=== PATIENT | female | born 1975 | race Caucasian/White ===

== ENCOUNTER 2017-10-14 14:02 | Emergency (ER) | payer OTHER ==
[~2017-10-14] VITALS: Ht 157.5 cm; Wt 77.1 kg
[~2017-10-14 14:02] MED LIST: ACET500; AMOX500 PO; ATEN50 PO; ATOR10 PO; Amitriptyline H25 MG PO; BENZ100A PO; BETA BLOCKER; CLIN300 PO; Cyclobenzaprine5 MG PO; ESCI20 PO; FLEXERIL; GABAPENTIN; HYDACE5 PO; HYDHCL25 PO; HYDPAM25 PO; IBUP200; LISI20 PO; LISI5 PO; METO25ER PO; NAPR220; NAPR500 PO; Norco 5-325 Ta1 EACH PO; PENVK250 PO; Prednisone20 MG PO; RXHYDACE PO; RXPENVK250 PO; SERT50 PO; TRAM50 PO; TRAMADOL; Ventolin/Prove6.7 GM INH; Vistaril25 MG PO; Vistaril50 MG PO; Zestril40 MG; Zestril40 MG PO
[2017-10-14] MEDS ORDERED: HYDPAM25 PO (14:19)
[2017-10-14] MEDS ORDERED: CYCL10 PO (16:22)
[2018-04-15] MEDS ORDERED: Vistaril25 MG PO (14:28)
[2018-04-15] MEDS ORDERED: Prinivil10 MG PO (14:55)
== END 2017-10-14 16:38 | disposition home or self-care (01) ==
LOC: ER 14:02
DX: S10.91XA Abrasion of unspecified part of neck, initial encounter (principal); Z88.5 Allergy status to narcotic agent; Z79.899 Other long term (current) drug therapy; I10 Essential (primary) hypertension; J45.909 Unspecified asthma, uncomplicated; E78.5 Hyperlipidemia, unspecified; F17.200 Nicotine dependence, unspecified, uncomplicated; V49.50XA Passenger injured in collision with unspecified motor vehicles in traffic accident, initial encounter
CPT/HCPCS: 72125; 96372; 99284; J1885

== ENCOUNTER 2017-10-23 00:52 | Emergency (ER) | payer OTHER ==
[~2017-10-23] VITALS: Ht 160 cm; Wt 77.1 kg
[~2017-10-23 00:52] MED LIST changes: +CYCL10 PO
[2017-10-23] MEDS ORDERED: METO25 (01:04)
[2017-10-23] MEDS ORDERED: BENZ100A PO (01:43)
[2018-04-15] MEDS ORDERED: Vistaril25 MG PO (14:28)
[2018-04-15] MEDS ORDERED: Prinivil10 MG PO (14:55)
== END 2017-10-23 02:03 | disposition home or self-care (01) ==
LOC: ER 00:52
DX: J06.9 Acute upper respiratory infection, unspecified (principal); I10 Essential (primary) hypertension; I25.2 Old myocardial infarction; F17.200 Nicotine dependence, unspecified, uncomplicated; J45.909 Unspecified asthma, uncomplicated; Z88.5 Allergy status to narcotic agent; Z79.899 Other long term (current) drug therapy
CPT/HCPCS: 96372; 99283; J1885

== ENCOUNTER 2019-03-31 11:04 | Emergency (ER) | payer OTHER ==
[~2019-03-31] VITALS: Ht 157.5 cm; Wt 74.8 kg
[~2019-03-31 11:04] MED LIST changes: +METO25; +Prinivil10 MG PO
[2019-03-31 11:59] LABS: Source, Urine Clean Catch
[2019-03-31 12:02] LABS: Bilirubin, Urine Neg (Neg); Blood, Urine 1+ (Neg); Glucose Qualitative, Urine Neg (Neg); Ketones, Urine 1+ (Neg); Leukocyte Esterase, Urine 3+ (Neg); Nitrite, Urine Neg (Neg); Protein, Urine 1+ (Neg); Urobilinogen, Urine 2+ (Normal)
[2019-03-31 12:16] LABS: Appearance, Urine Hazy (Clear); Color, Urine Yellow (P-Yellow)
[2019-03-31 12:18] LABS: Red Blood Cells, Urine 0-2 /hpf (0-2); Squamous Epithelial Cells Many /hpf (Few)
[2019-03-31 12:19] LABS: Bacteria Mod /hpf
[2019-03-31] MEDS ORDERED: IBUP800 PO (13:00)
[2019-03-31] MEDS ORDERED: HYDR1TAB94 PO (13:09)
== END 2019-03-31 13:05 | disposition home or self-care (01) ==
LOC: ER 11:04
PROVIDERS: Physician Assistant
DX: S92.512A Displaced fracture of proximal phalanx of left lesser toe(s), initial encounter for closed fracture (principal); W22.8XXA Striking against or struck by other objects, initial encounter; Z88.5 Allergy status to narcotic agent; I10 Essential (primary) hypertension; I25.2 Old myocardial infarction; J45.909 Unspecified asthma, uncomplicated; F17.210 Nicotine dependence, cigarettes, uncomplicated
CPT/HCPCS: 73660; 81001; 81025; 87086; 99283-25

== ENCOUNTER 2019-07-08 20:37 | Emergency (ER) | payer OTHER ==
[~2019-07-08] VITALS: Ht 160 cm; Wt 81.7 kg
[~2019-07-08 20:37] MED LIST changes: +HYDR1TAB94 PO; +IBUP800 PO
[2019-07-08] MEDS ORDERED: ZESTORETIC 20-121 EA (20:53)
[2019-07-08] MEDS ORDERED: Atarax10 MG (20:53)
[2019-07-08] MEDS ORDERED: Ferrous Sulfat325 MG (20:53)
[2019-07-08] MEDS ORDERED: Cymbalta20 MG PO (20:54)
[2019-07-08] MEDS ORDERED: VICODIN 5-3001 EACH PO (22:13)
[2019-07-08] MEDS ORDERED: IBUP600 PO (22:13)
== END 2019-07-09 02:18 | disposition home or self-care (01) ==
LOC: ER 20:37
DX: S82.64XA Nondisplaced fracture of lateral malleolus of right fibula, initial encounter for closed fracture (principal); I10 Essential (primary) hypertension; I25.2 Old myocardial infarction; F17.210 Nicotine dependence, cigarettes, uncomplicated; Z88.5 Allergy status to narcotic agent; Z79.899 Other long term (current) drug therapy; V00.121A Fall from non-in-line roller-skates, initial encounter
CPT/HCPCS: 29515; 73610; 96372-59; 99283-25; A9270; A9270-GY; J3010

== ENCOUNTER 2020-09-10 09:22 | Emergency (ER) | payer OTHER ==
[~2020-09-10] VITALS: Ht 157.5 cm; Wt 90.7 kg
[~2020-09-10 09:22] MED LIST changes: +Atarax10 MG; +Cymbalta20 MG PO; +Ferrous Sulfat325 MG; +IBUP600 PO; +VICODIN 5-3001 EACH PO; +ZESTORETIC 20-121 EA
== END 2020-09-10 09:50 | disposition home or self-care (01) ==
LOC: ER 09:22
DX: T78.40XA Allergy, unspecified, initial encounter (principal); I10 Essential (primary) hypertension; I25.2 Old myocardial infarction; F17.210 Nicotine dependence, cigarettes, uncomplicated; Z88.5 Allergy status to narcotic agent; Z79.899 Other long term (current) drug therapy
CPT/HCPCS: 99282; J1100

== ENCOUNTER 2021-05-31 12:30 | Emergency (ER) | payer OTHER | END 2021-05-31 14:45 | disposition home or self-care (01) | LOC: ER 12:30 | DX: U07.1 COVID-19 (principal); F17.210 Nicotine dependence, cigarettes, uncomplicated; I10 Essential (primary) hypertension; J45.909 Unspecified asthma, uncomplicated; Z79.899 Other long term (current) drug therapy; Z88.0 Allergy status to penicillin; Z88.5 Allergy status to narcotic agent | CPT/HCPCS: 96372; 99282-25; J1885 ==

== ENCOUNTER 2021-08-17 11:41 | Emergency (ER) | payer OTHER ==
[~2021-08-17] VITALS: Ht 157.5 cm; Wt 90.7 kg
[2021-08-17] MEDS ORDERED: IBUP400 PO (12:58)
[2021-08-17] MEDS ORDERED: ACET500 PO (12:58)
== END 2021-08-17 13:10 | disposition home or self-care (01) ==
LOC: ER 11:41
DX: S96.912A Strain of unspecified muscle and tendon at ankle and foot level, left foot, initial encounter (principal); M77.8 Other enthesopathies, not elsewhere classified; I10 Essential (primary) hypertension; I25.2 Old myocardial infarction; J45.909 Unspecified asthma, uncomplicated; F17.210 Nicotine dependence, cigarettes, uncomplicated; Z88.5 Allergy status to narcotic agent; Z88.0 Allergy status to penicillin; Z79.899 Other long term (current) drug therapy; W22.8XXA Striking against or struck by other objects, initial encounter
CPT/HCPCS: 73630; 99283-25; A9270

== ENCOUNTER → 2022-12-24 | Outpatient (CLI) | payer OTHER ==
[~2022-12-24] MED LIST changes: +ACET500 PO; +IBUP400 PO
== END | disposition home or self-care (01) ==
LOC: LAB 11:40 → LAB SHORT 11:40
DX: N39.0 Urinary tract infection, site not specified (principal)
CPT/HCPCS: 87077; 87086; 87186

== ENCOUNTER → 2024-04-07 | Outpatient (CLI) | payer OTHER ==
[2024-04-07 15:27] LABS: BASOPHILS PERCENT AUTO 1 % (0-2); EOSINOPHILS PERCENT AUTO 4 % (0-6); Hemoglobin 16.3 g/dL (11.5-16.0); IMMATURE GRAN ABSOLUTE AUTO 0.02 K/mm3 (0.00-0.10); IMMATURE GRAN PERCENT AUTO 0 % (0-1); LYMPHOCYTES ABSOLUTE AUTO 2.34 K/mm3 (0.84-5.20); LYMPHOCYTES PERCENT AUTO 29 % (21-46); MONOCYTES ABSOLUTE AUTO 0.94 K/mm3 (0.16-1.47); MONOCYTES PERCENT AUTO 12 % (4-13); Mean Corpuscular HGB 30.5 pg (26.0-34.0); Mean Corpuscular HGB Conc 32.6 g/dL (31.5-36.5); Mean Corpuscular Volume 94 fL (80-100); Mean Platelet Volume 10.4 fL (9.1-12.4); NEUTROPHILS ABSOLUTE AUTO 4.31 K/mm3 (1.96-9.15); NEUTROPHILS PERCENT AUTO 54 % (41-73); Platelet Count 403 K/mm3 (150-400); Red Blood Cell Count 5.35 M/mm3 (3.80-5.20); White Blood Cell Count 8.01 K/mm3 (4.00-11.30)
[2024-04-07 15:35] LABS: Alanine Aminotransfer (ALT/SGP 26 U/L (12-78); Albumin, Blood 4.3 g/dL (3.4-5.0); Alk Phos 108 U/L (50-136); Anion Gap 6 mmol/L (3-11); Aspartate Aminotrans (AST/SGOT 19 U/L (12-37); Bilirubin, Total 0.7 mg/dL (0.1-1.0); Blood Urea Nitrogen 17 mg/dL (8-24); Bun/Creatinine Ratio 23.2 (12.0-20.0); CHOL/HDL RATIO 2.2; CO2, Blood 30 mmol/L (21-32); Calcium, Blood 9.6 mg/dL (8.5-10.1); Chloride, Blood 106 mmol/L (98-108); Cholesterol 226 mg/dL (50-200); Creatinine, Blood 0.73 mg/dL (0.40-1.00); Ferritin, Serum 172 ng/mL (8-252); Globulin, Blood 4.1 g/dL (2.2-4.0); Glomerular Filtration Rate 101 (60-); Glucose, Blood 95 mg/dL (70-99); HDL Cholesterol 105 mg/dL (>39); Low Density Lipoprotein Chol 108 mg/dL (0-110); Potassium, Blood 3.6 mmol/L (3.5-5.5); Sodium, Blood 138 mmol/L (136-145); Total Iron Binding Capacity 288 ug/dL (250-450); Total Protein, Blood 8.4 g/dL (6.4-8.2); Triglycerides 64 mg/dL (30-160); Very Low Density Lipoprot Chol 12 mg/dL (6-32)
[2024-04-07 15:37] LABS: Iron Serum 98 ug/dL (50-170)
== END ==
LOC: LAB SHORT 14:16 → LAB 14:16
PROVIDERS: Nurse Practitioner Family
DX: Z13.6 Encounter for screening for cardiovascular disorders (principal); E61.1 Iron deficiency; F41.9 Anxiety disorder, unspecified; I10 Essential (primary) hypertension; R73.01 Impaired fasting glucose
CPT/HCPCS: 80053; 80061; 82728; 83036; 83540; 83550; 84443; 85025

== ENCOUNTER 2024-12-11 16:31 | Emergency (ER) | payer OTHER ==
[~2024-12-11] VITALS: Ht 170.2 cm; Wt 81.7 kg
[2024-12-11 17:11] VITALS: BP 128/98
[2024-12-11] MEDS ORDERED: MethylPREDNISolone Sod Succ 125 MG Vial IV ONE (17:40)
[2024-12-11] MEDS ORDERED: Famotidine 10 MG/ML 2ML Vial IV ONE (17:40)
[2024-12-11] MEDS ORDERED: MethylPREDNISolone Sod Succ 125 MG Vial IM ONE (17:50)
[2024-12-11] MEDS ORDERED: Famotidine 20 MG Tab PO ONE (17:50)
[2024-12-11] MEDS ORDERED: FAMO20 PO (18:31)
[2024-12-11] MEDS ORDERED: EPIPEN0.3 MG/0.1 INJ (18:31)
[2024-12-11] MEDS ORDERED: PRED20 PO (18:31)
[2024-12-11] MEDS ORDERED: BENADRYL25 M1 PO (18:31)
== END 2024-12-11 18:38 | disposition home or self-care (01) ==
LOC: ER 16:31
DX: L25.2 Unspecified contact dermatitis due to dyes (principal); I10 Essential (primary) hypertension; J45.909 Unspecified asthma, uncomplicated; F17.210 Nicotine dependence, cigarettes, uncomplicated; Z88.5 Allergy status to narcotic agent; Z88.1 Allergy status to other antibiotic agents; Z79.899 Other long term (current) drug therapy
CPT/HCPCS: 96372; 99283-25; A9270; J2919

== ENCOUNTER 2025-07-02 11:07 | Emergency (ER) | payer OTHER ==
[~2025-07-02] VITALS: Ht 157.5 cm; Wt 90.7 kg
[~2025-07-02 11:07] MED LIST changes: +BENADRYL25 M1 PO; +EPIPEN0.3 MG/0.1 INJ; +FAMO20 PO; +PRED20 PO
[2025-07-02] MEDS ORDERED: DiphenhydrAMINE HCl 50 MG/ML 1ML Vial IV ONE (11:35)
[2025-07-02] MEDS ORDERED: PRED20 PO (12:54)
[2025-07-02 13:15] VITALS: BP 144/116
== END 2025-07-02 13:13 | disposition home or self-care (01) ==
LOC: ER 11:07
DX: L23.4 Allergic contact dermatitis due to dyes (principal)
CPT/HCPCS: 96374; 96375; 99283-25; J1200; J2919